=== PATIENT | male | born 1960 | race Caucasian/White ===

== ENCOUNTER 2022-06-14 12:15 | Emergency (ER) | payer BC, SELFPAY ==
--- NOTE | ~2022-06-14 | XR_ITS ---
EXAMINATION: XR finger 2nd LT min 2V DATE: 06/14/2022 12:33 INDICATION: Table saw laceration to the left index finger TECHNIQUE: Dorsal palmar, lateral and oblique views of the left second digit were obtained COMPARISON: None FINDINGS: Clinical/compound tuft fracture at the tip of the left second distal phalanx with loss of both bone s tock at the dorsal and lateral aspects of the tuft as well as some of the overlying soft tissues. A t iny fragment of the tuft is displaced and located along the skin surface at the palmar tip of the dis edgar phalanx. No other fractures identified. Alignment and joint spaces are normal throughout the bety julia of the visualized left hand. IMPRESSION: 1. Open/compound, comminuted fracture with some loss of bone at the tuft of the left second distal ph alanx. Reviewed, dictated and finalized at location A. IMPRESSION: 1. Open/compound, comminuted fracture with some loss of bone at the tuft of the left second distal phalanx.
[2022-06-14 12:25] VITALS: BP 152/80; PULSE 85; RESP 16; TEMP 36.6; O2SAT 99
--- NOTE | 2022-06-14 12:35 | ED.WOUNDLAC ---
HPI - Wound/Laceration General Chief Complaint: Wound/Laceration Stated Complaint: left hand index finger injury Time Seen by Provider: 06/14/22 12:28 Source: patient, family, RN notes reviewed and old records reviewed Mode of arrival: ambulatory Limitations: no limitations History of Present Illness HPI narrative: 61 year old male presents to [facility] care with laceration and injury to his distal left index finger from injury with a table saw. Dressing is in place upon arrival to his left index finger with some active bleeding noted. Wound noted to left distal index finger with open avulsion of skin distally with lateral portion of nail also removed with injury, appears that bone has been injured to tuft area of finger as well. Patient reports pain to distal left index as 7/10 with throbbing sensation Tetanus is not up to date will update in clinic.. Onset (ago): minute(s) (within past 30 minutes prior to arrival) Location: other (Left index finger) Place: home Patient tetanus UTD: No Treatments prior to arrival: bandage Related Data Allergies Allergy/AdvReac Type Severity Reaction Status Date / Time lisinopril Allergy Unknown Cough Verified 11/12/20 10:02 potassium iodide Allergy Unknown Unknown Verified 11/12/20 10:02 sulfacetamide Allergy Unknown Unknown Verified 11/12/20 10:02 Review of Systems Review of Systems: CONSTITUTIONAL: Denies fever, chills, or sweats. EYES: Denies visual changes, redness, or discharge. ENT: Denies rhinorrhea, congestion, sore throat, or otalgia. CARDIOVASCULAR: Denies chest pain, palpitations, or edema. RESPIRATORY: Denies cough or dyspnea. GASTROINTESTINAL: Denies abdominal pain, nausea, vomiting, or diarrhea. GENITOURINARY: Denies dysuria or hematuria. SKIN: Denies rash or itching.open tuft fracture to left index finger with damage to nail and bone MUSCULOSKELETAL: Denies back pain, joint pain, or myalgia. NEUROLOGIC: Denies headache, numbness, or weakness. PSYCHIATRIC: Denies anxiety or depression. All systems reviewed & are unremarkable except as noted in HPI and below PMFSH Past Medical History Medical History (Updated 06/15/22 @ 16:54 by Daniela Nguyen NP) Carpal tunnel syndrome on both sides Contracture of palmar fascia (Dupuytren's) GERD (gastroesophageal reflux disease) Gout Hyperlipidemia Hypertension Family History Family History Other Family history of malignant neoplasm Social History Social History (Updated 10/18/20 @ 16:35 by Cynthia Puga CMA) Smoking status: Never smoker Second hand tobacco smoke exposure: No Alcohol intake: current Drinks per week: 7 Substance use: never Substance use type: does not use Gender identity (if verbalized by the patient): Male Comments At time of signature agree with nursing documention of past medical, surgical, social and family history. There is no pertinent family history relevant to presenting complaint Exam Narrative: GENERAL: Well-appearing, well-nourished, and in some distress related to pain and injury HEAD: Normocephalic, atraumatic. EYES: PERRLA and EOMI. ENT: Nares clear, no rhinorrhea or epistaxis. Mucous membranes moist. NECK: Supple. no lymphadenopathyportion of CHEST: Clear to auscultation. No respiratory distress.SAO2 99% on room air no tachypnea HEART: Regular rate and rhythm. No murmur heard. Normal peripheral pulses. ABDOMEN: Soft, nontender, nondistended, normal active bowel sounds. EXTREMITIES: Normal range of motion. No edema.Injury with avulsion of skin and part of nail on lateral aspect of left distal index finger from table saw injury, also portion of bone and tuft loss laterally SKIN: Warm, dry, no rash. NEURO: No focal deficits. Alert and oriented x3. Course Course Level of Care: Express Care Visit Vital Signs Vital signs: Vital Signs Temperature 36.6 C 06/14/22 12:25 Pulse Rate 85 06/14/22 12:25 Respiratory Rate 16 0
[2022-06-14] MEDS: TETANUS,DIPHTHERIA,AC PERTUSSIS ADULT (0.5 ML) BOOSTRIX IM (13:13)
== END 2022-06-14 13:15 | disposition home or self-care (01) ==
PROVIDERS: Emergency Provider Registered Nurse; PCP Family Medicine
DX: S62.631B Displaced fracture of distal phalanx of left index finger, initial encounter for open fracture (principal); W27.0XXA Contact with workbench tool, initial encounter; Z23 Encounter for immunization; K21.9 Gastro-esophageal reflux disease without esophagitis; M10.9 Gout, unspecified; E78.5 Hyperlipidemia, unspecified; I10 Essential (primary) hypertension
CPT/HCPCS: 73140; 90471; 90715; 99213; G0463

== ENCOUNTER 2023-04-06 01:20 | Day surgery (SDC) | payer BC, SELFPAY ==
[2023-03-29 14:52] VITALS: BMI 31.1
[2023-04-06 10:28] VITALS: BP 143/77; PULSE 74; RESP 18; TEMP 36.3; O2SAT 99; BMI 29.4
[2023-04-06] MEDS: LACTATED RINGERS 1,000 ML 150 ML IV CONT (10:43)
--- NOTE | 2023-04-06 10:48 | WPDANESEPPF ---
Anes - Initial Pre Proc Eval Procedure: Operation Date: 04/06/23 11:30 Proposed Procedures p Colonoscopy - Garett Chand MD Date/Time: 04/06/23 10:48 Surgeon: Garett Chand MD Pre Op Diagnosis: other fecal abnormalities Patient Data Age: 62 Gender: M Height: 1.75 m Weight: 90.4 kg Last Vital Signs Temp 36.3 C L 04/06/23 10:28 Pulse 74 04/06/23 10:28 Resp 18 04/06/23 10:28 BP 143/77 H 04/06/23 10:28 Pulse Ox 99 04/06/23 10:28 O2 Del Method Room Air 04/06/23 10:28 Allergies Allergy/AdvReac Type Severity Reaction Status Date / Time omeprazole Allergy Severe Itching Verified 04/06/23 10:32 lisinopril Allergy Unknown Cough Verified 04/06/23 10:32 potassium iodide Allergy Unknown Unknown Verified 04/06/23 10:32 sulfacetamide Allergy Unknown Unknown Verified 04/06/23 10:32 Home Medications Medication Instructions Recorded Confirmed Type allopurinol 300 mg tablet See Rx Instructions .Route 09/25/22 04/06/23 Rx .COMPLEX #90 tabs simvastatin 10 mg tablet See Rx Instructions .Route 09/25/22 04/06/23 Rx .COMPLEX #90 tabs losartan 100 mg tablet 50 mg .Route .COMPLEX 12/22/22 04/06/23 History Patient hx anesthesia problems: none Family hx anesthesia problems: none Results Review: All pre-operative results and documents have been reviewed as part of the pre-operative evaluation. REPLACED BY [facility] Past Medical History Medical History Carpal tunnel syndrome on both sides Contracture of palmar fascia (Dupuytren's) GERD (gastroesophageal reflux disease) Gout Hyperlipidemia Hypertension Surgical History Surgical History History of throat surgery Family History Family History Other Family history of malignant neoplasm Social History Social History Smoking status: Never smoker Second hand tobacco smoke exposure: No Alcohol intake: current Drinks per week: 6 Substance use: never Substance use type: does not use Lack of Transportation: No Lack of Food: Never True Current Housing: I Have Housing Concerned About Future Housing: No Difficulty Paying Gas/Electric Bills: No Difficulty Paying for Meds: No Currently Unemployed: No Education: Bachelor's Degree Difficulty w/ Childcare or Family Care: No Living arrangements: with family Occupation/Education: occupation Gender identity (if verbalized by the patient): Male Spiritual care concerns: No Anes - Eval Final PreProcedure Day of Procedure 04/06/23 10:48 Patient weight: overweight Heart: regular rate and rhythm Lungs: clear to auscultation and normal air movement Airway: Mallampati scale class II Neurological: alert and oriented Last oral intake: >/= 8 hours ASA classification: II Emergent: no Anesthetic plan: proceed Anesthesia type and monitoring: general GIVS Results Review: All pre-operative results and documents have been reviewed as part of the pre-operative evaluation. Informed Consent: The patient's anesthetic plan and its attendant risks and benefits were discussed with the patient/family/POA. Questions were solicited and answers provided to the satisfaction of the patient/family/POA.
--- NOTE | 2023-04-06 11:28 | PM.HPGS ---
History of Present Illness History of Present Illness Consent: Risks, benefits, and alternatives have been discussed and questions answered. Patient agrees to proceed with procedure. Chief complaint: positive cologuard test Narrative: Vince Gallardo is a 62 year old male Presents for screening colonoscopy. Patient's current weight appetite and bowel movements are normal. Patient denies abdominal pain. He has had no bleeding. Family history noncontributory. Recent Cologuard test was found to be positive. Patient referred today for colonoscopy subsequently. Review of Systems Review of Systems: Review of systems noncontributory. FORMERLY [facility], 1928–1983 Past Medical History Medical History Carpal tunnel syndrome on both sides Contracture of palmar fascia (Dupuytren's) GERD (gastroesophageal reflux disease) Gout Hyperlipidemia Hypertension Surgical History Surgical History History of throat surgery Family History Family History Other Family history of malignant neoplasm Social History Social History Smoking status: Never smoker Second hand tobacco smoke exposure: No Alcohol intake: current Drinks per week: 6 Substance use: never Substance use type: does not use Lack of Transportation: No Lack of Food: Never True Current Housing: I Have Housing Concerned About Future Housing: No Difficulty Paying Gas/Electric Bills: No Difficulty Paying for Meds: No Currently Unemployed: No Education: Bachelor's Degree Difficulty w/ Childcare or Family Care: No Living arrangements: with family Occupation/Education: occupation Gender identity (if verbalized by the patient): Male Spiritual care concerns: No Meds Home Medications and Allergies Home Medications Medication Instructions Recorded Confirmed Type allopurinol 300 mg tablet See Rx Instructions .Route 09/25/22 04/06/23 Rx .COMPLEX #90 tabs simvastatin 10 mg tablet See Rx Instructions .Route 09/25/22 04/06/23 Rx .COMPLEX #90 tabs losartan 100 mg tablet 50 mg .Route .COMPLEX 12/22/22 04/06/23 History Allergies Allergy/AdvReac Type Severity Reaction Status Date / Time omeprazole Allergy Severe Itching Verified 04/06/23 10:32 lisinopril Allergy Unknown Cough Verified 04/06/23 10:32 potassium iodide Allergy Unknown Unknown Verified 04/06/23 10:32 sulfacetamide Allergy Unknown Unknown Verified 04/06/23 10:32 Vital Signs Vital Signs - 24 hr 04/06/23 10:28 Temperature 97.3 F L Pulse Rate 74 Respiratory Rate 18 Blood Pressure 143/77 H Pulse Oximetry 99 Oxygen Delivery Room Air Exam Narrative: Physical exam reveals patient to be alert. Vital signs stable. HEENT exam is unremarkable. Patient is anicteric. Lungs are clear to auscultation and percussion. Heart is without murmur or extra sounds. Abdomen bowel sounds are present soft nontender with no hepatosplenomegaly. Digital external rectal exam normal. Assessment and Plan Assessment and plan (1) Positive colorectal cancer screening using Cologuard test: Code(s): R19.5 - Other fecal abnormalities Status: Acute Assessment and Plan: Patient had a positive Cologuard test. Plan for colonoscopy at this time.
[2023-04-06 12:00] VITALS: BP 104/63; PULSE 68; RESP 17; O2SAT 95
[2023-04-06 12:10] VITALS: BP 116/70; PULSE 71; RESP 18; O2SAT 98
[2023-04-06 12:20] VITALS: BP 130/74; PULSE 67; RESP 18; O2SAT 98
== END 2023-04-06 12:35 | disposition home or self-care (01) ==
PROVIDERS: PCP Family Medicine; Visit Provider Internal Medicine Gastroenterology
PROC: 0DJD8ZZ Inspection of Lower Intestinal Tract, Via Natural or Artificial Opening Endoscopic (ICD-10-PCS; CPT 45378; principal; 2023-04-06 11:30)
DX: R19.5 Other fecal abnormalities (principal); K64.8 Other hemorrhoids; K57.30 Diverticulosis of large intestine without perforation or abscess without bleeding; I10 Essential (primary) hypertension; E78.5 Hyperlipidemia, unspecified; K21.9 Gastro-esophageal reflux disease without esophagitis; M10.9 Gout, unspecified
CPT/HCPCS: 45378; J2704; J7120

== ENCOUNTER 2024-01-15 14:41 | Outpatient (CLI) | payer BC, SELFPAY ==
--- NOTE | ~2024-01-15 | CT_ITS ---
Non-contrast CT scan of the Abdomen and Pelvis, and of the lumbar spine Clinical indication: Renal colic Technique: 2.5 mm axial scans were obtained through the abdomen and pelvis without intravenous or or al contrast. Axial imaging of the lumbar spine was also performed, sagittal coronal reformatted image s. Dose reduction technique was used on this scan by utilizing automated exposure control and iterati ve reconstruction technique. The dose-length product (DLP) was 1061.84 mGy-cm. Abdominopelvic Findings: Images through the lung bases reveal no abnormalities. There is no evidence of renal or ureteral calculi. The kidneys and the ureters are nondilated. The liver, spleen, pancreas, gallbladder, and adrenals appear normal.. There are atherosclerotic calc ifications of the aorta. There is no evidence of bowel obstruction. There is sigmoid diverticulosis. Images through the pelvis were performed. There is no evidence of ascites or lymphadenopathy. Urinary bladder unremarkable. Prostate gland mildly enlarged. Lumbar spine findings: There is no fracture or subluxation of the lumbar spine. Vertebral bodies main tain normal height and alignment. Intervertebral disc spaces and minimal degenerative disc changes. At L1-L2, there is no disc bulge or herniation. No spinal canal stenosis or neural foraminal narrowin g. At L2-L3, there is minimal disc bulge and minimal facet arthropathy. No central canal stenosis or rai ral foraminal narrowing. At L3-L4, there is minimal disc bulge and mild facet arthropathy. No definite central canal stenosis. There is mild to moderate bilateral neural foraminal narrowing. At L4-L5, there is minimal disc bulge and mild facet arthropathy. Probable minimal central canal sten osis and moderate right neural foraminal narrowing. Minimal left neural foraminal narrowing. At L5-S1, there is mild disc bulge. No central canal stenosis. There is moderate bilateral neural for aminal narrowing. Paravertebral soft tissues are unremarkable. Impression: No acute abnormality in the abdomen or pelvis. 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 Reviewed, dictated and finalized at [facility]. Impression: No acute abnormality in the abdomen or pelvis. 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
== END 2024-01-15 14:42 ==
LOC: GOSHIMG 14:43
PROVIDERS: PCP Family Medicine; Visit Provider Family Medicine
DX: G89.29 Other chronic pain (principal); N23 Unspecified renal colic; M43.06 Spondylolysis, lumbar region
CPT/HCPCS: 72131; 74176